=== PATIENT | male | born 1975 | race Caucasian/White ===

== ENCOUNTER → 2016-08-12 | Day surgery (SDC) | payer BC ==
[2016-07-22 10:04] VITALS: Ht 175.3 cm; Wt 84.1 kg
[~2016-08-12] VITALS: Ht 175.3 cm; Wt 84.1 kg
[~2016-08-12] MED LIST: ALBU18002 INH; ATROPINE SULFATE 0.1 MG/ML 5ML SYR IV PRN; BUPIVACAINE/EPINEPHRINE 0.5% MPF 1:200,000 30 ML VIAL ONE; CETI10TA84 PO; CLINDAMYCIN PHOS 150 MG/ML 2 ML VIAL IV SCH; DEXAMETHASONE SOD INJ 4 MG/ML VIAL ONE; EpHEDrine SULFATE INJ 50 MG/ML AMP IV PRN; EpINEphrine INJ 1MG/ML AMP 1 MG/ML AMP ONE; FENTANYL CITRATE INJ 50 MCG/1 ML 2 ML VIAL IV PRN; FENTANYL CITRATE INJ 50 MCG/1 ML 2 ML VIAL ONE; FLUT0.15 NAE; LACTATED RINGER'S 1000ML 1,000 ML IV SCH; LIDOCAINE HCL 1% 20 ML VIAL ONE; LIDOCAINE HCL 2% 2 ML VIAL (20MG/ML) ONE; MIDAZOLAM HCL 1 MG/ML 2ML VIAL ONE; MoRPHine SULFATE 2 MG/ML CARP IV PRN; MoRPHine SULFATE 4 MG/ML 1 ML CARP\\VIAL IV PRN; ONDANSETRON INJ 2 MG/ML 2 ML VIAL IV PRN; ONDANSETRON INJ 2 MG/ML 2 ML VIAL ONE; OXYCODONE/ACETAMINOPHEN 5-325 TAB PO PRN; PROPOFOL IV EMULSION 10 MG/ML 20 ML VIAL IV ONE; SCOPOLAMINE 1.5 MG TDSY TD ONE
--- NOTE | 2016-08-12 06:55 | History & Physical Bridge - [place] ---
H&P Re-Evaluation Bridge Note: I have examined the patient, reviewed the History & Physical and in the interval since the performance of the History & Physical I have noted the following changes of clinical significance: No changes noted
--- NOTE | 2016-08-12 08:21 | Discharge Instructions-SurgCtr ---
Discharge Instructions Date of Service Aug 12, 2016. Visit Reason for Visit: Left Knee Medial Meniscus Tear Discharge Discharge Diagnosis / Problem: Status post Left knee arthrscopy and debridment Discharge Goals Goal(s): Decrease discomfort, Improve function, Increase independence Activity Recommendations Activity Limitations: per Instructions/Follow-up section Exercise/Sports Limitations: gradually increase as tolerated May Resume Sexual Activity: when tolerated Shower/Bathe: may shower/bathe in 3 days Driving or Machine Use: Not while on narcotics Weightbearing Status: Left weightbearing (as tolerated) Anesthesia . Post Anesthesia Instructions: If you have had General Anesthesia or IV Sedation: * Do not drive today. * Resume driving when surgeon permits. * Do not make important decisions or sign legal documents today. * Call surgeon for: 1. Temperature elevations greater than 101 degrees F. 2. Uncontrollable pain. 3. Excessive bleeding. 4. Persistent nausea and vomiting. 5. Medication intolerance (nausea, vomiting or rash). * For nausea and vomiting use only clear liquids such as: tea, soda, bouillon until nausea subsides, then gradually increase diet as tolerated. * If you have any concerns or questions, call your surgeon's office. If physician is unavailable and it is an emergency, call 911 or go to the nearest emergency room. . Instructions / Follow-Up Instructions / Follow-Up Dr. Celaya in 10-15 days. PT in 2-3 days. Diet Recommendations Home Diet: resume previous diet Procedures Procedures Performed: Left Knee Arthroscopy, Partial medial menisectomy, loose body removal, Chondroplasty, Exam Under Andesthesia Pending Studies Studies pending at discharge: no Medical Emergencies . Who to Call and When: Medical Emergencies: If at any time you feel your situation is an emergency, please call 911 immediately. . Non-Emergent Contact Non-Emergency issues call your: Surgeon Call Non-Emergent contact if: temperature is above 101.5, your pain is not controlled, wound has increased drainage, wound has increased redness . . "Provider Documentation" section prepared by Juan Carlos Celaya.
--- NOTE | 2016-08-12 08:24 | [facility] Operative Report ---
Operative Report Operative Date Aug 12, 2016. Pre-Operative Diagnosis Torn medial meniscus left knee Post-Operative Diagnosis same + loose bodies, chondromalacia Procedure(s) Performed 1) Left Knee Arthroscopy Chondroplasty trochlea. 2) Loose body removal. 3) Partial medial menisectomy. 4) Exam Under Andesthesia. Surgeon Dr Celaya Screw Down Surgeon(s) Dr Jimena Moeller Estimated Blood Loss 2 ml Findings The left knee was examined under anesthesia. Range of motion was 0-135. Ligamentous examination exhibited: stable Doug, posterior drawer, varus and valgus stress at 0 & 30 degrees. ARTHROSCOPIC FINDINGS: There was some synovitis and loose bodies in the suprapatellar pouch. 1) PATELLOFEMORAL JOINT: The articular cartilage of the Patella was intact and Trochlea had some Outerbridge type I and 2 changes centrally. 2) GUTTERS: No loose bodies in the medial gutter, small loose bodies in the lateral gutter. There was a non-engaging medial plica. 3) MEDIAL COMPARTMENT: The articular cartilage of the femur and Tibia was intact. The medial meniscus had a degenerative complex tear with flap tears at the apex and posterior horn. 4) ACL/PCL: They were both visualized and probed to be intact. 5) LATERAL COMPARTMENT: The lateral compartment was then entered in a figure-of- four position. The femoral articular cartilage was normal. The tibial articular cartilage had minimal Outerbridge type II changes at the posterior medial aspect. The lateral meniscus was normal. Fluids (cc crystalloids) 800 Specimens 0 Drains n/a Anesthesia LMA Complication(s) None Disposition Recovery Room / PACU (Stable) Implants n/a Indications This is a 41-year-old male who has clinical and MRI findings consistent with meniscus tear and chondromalacia. I recommended that a left knee arthroscopy be performed with meniscus repair vs debridement, possible chondroplasty versus microfracture. The patient understands the risks of surgery, which include but not limited to: bleeding, infection, re-operation, damage to nerves and arteries , continued knee pain, progression of OA, DVT, and a 2-5% risk of becoming worse after surgery. The patient understands all of these instructions and explanations, all of his questions have been satisfactorily addressed and the patient has elected to proceed. Informed consent was signed. Description of Procedure The patient was taken to the Operating Room and placed in the supine position after general anesthetic was administered. My initials and a multidisciplinary time-out were used to identify the left leg as the correct operative limb. Prior to the incision, 600 mg of intravenous clindamycin was given. The left knee was then injected with 20cc of a 50:50 mix of 1% Lidocaine plain and 0.5% Bupivacaine with epinephrine in a sterile fashion using the superolateral portal. The left leg was then prepped and draped in a standard sterile fashion. The anterolateral and anteromedial portals were injected with the 50:50 mixture noted above, for a total of 10cc, in the standard fashion. An anterolateral arthroscopic portal was established with an 11-blade. Next, the arthroscope was introduced into the knee. A diagnostic arthroscopy commenced anteromedial portal was established under direct visualization using a spinal needle followed by an 11 blade in the standard fashion. The above findings were observed during the diagnostic arthroscopy. The anterior fat pad were debrided as they were encounter with mechanical shaver to allow for better visualization. The loose bodies were removed with mechanical shaver or through the trocar for the arthroscope as they were encountered. The articular cartilage damage was debrided back to stable margins as they were encountered with mechanical shaver. The medial meniscus tear was evaluated and found to be irreparable and was debrided back to stable margin with hand punches, and mechanical shaver. The medial plica was non- engaging. The knee was copiously irrigated. The arthroscopic instruments were then removed. The portals were closed with 3-0 Prolene in a standard fashion. The wound was dressed with Xeroform gauze, sterile gauze, ABDs, sterile Webril, and a foot to thigh Danilo bandage. The patient was then transferred to the Recovery Room in stable condition. The sponge and needle counts were correct. Post-op Instructions: The patient will be WBAT. The patient may remove the operative dressing on Post -Op Day #2 and apply Band-Aids to the wounds. The patient may shower in 72 hours and is to wear the HANSEL for 2 weeks on the operative limb. The patient is to use the pain medicine as needed and take the ASA for 2 weeks. The patient was also given a handout for home quad strengthening and seated self-assisted ROM exercises, which they may begin tomorrow. The patient was given a prescription for PT and is scheduled for an appointment later this week. The patient is to follow up with me in 10-15 days. I attest to the content of the Intraoperative Record and any orders documented therein. Any exceptions are noted below.
[2016-08-12 09:21] VITALS: TEMP 36.6
[2016-08-12 09:41] VITALS: BP 112/77; PULSE 68; O2SAT 97
--- NOTE | 2016-08-12 09:45 | Anesthesia Progress Nt - [facility] ---
Anesthesia Post Op Note Date & Time Aug 12, 2016 at 09:46 Vital Signs Pain Intensity: 3 Vital Signs Past 12 Hours Date Time Temp Pulse Resp B/P Pulse Ox O2 Delivery O2 Flow Rate FiO2 08/12/16 09:41 68 18 112/77 97 Room Air 08/12/16 09:21 36.6 70 16 124/82 96 Room Air 08/12/16 09:07 70 7 08/12/16 09:07 71 7 97 08/12/16 09:06 123/73 08/12/16 09:05 36.8 76 16 123/73 96 Room Air 08/12/16 09:03 70 7 08/12/16 09:03 73 7 97 08/12/16 09:01 118/80 08/12/16 08:58 71 12 100 08/12/16 08:58 71 12 08/12/16 08:56 107/64 08/12/16 08:53 78 22 99 08/12/16 08:53 77 22 08/12/16 08:51 116/77 08/12/16 08:48 69 12 08/12/16 08:48 69 12 99 08/12/16 08:47 79 23 99 08/12/16 08:47 78 23 08/12/16 08:46 127/81 08/12/16 08:42 86 17 08/12/16 08:42 86 17 99 08/12/16 08:41 117/88 08/12/16 08:37 87 131/79 96 08/12/16 08:37 87 08/12/16 08:37 36.8 79 22 131/79 99 Mask 8 08/12/16 06:27 36.7 78 16 127/87 97 Room Air Notes Mental Status: alert / awake / arousable, participated in evaluation Pt Amnestic to Procedure: Yes Nausea / Vomiting: adequately controlled Pain: adequately controlled Airway Patency, RR, SpO2: stable & adequate BP & HR: stable & adequate Hydration State: stable & adequate Anesthetic Complications: no major complications apparent
== END | disposition home or self-care (01) ==
LOC: X.SURG 06:17
PROVIDERS: ATTEND Orthopaedic Surgery Sports Medicine
DX: M23.222 Derangement of posterior horn of medial meniscus due to old tear or injury, left knee (principal); M94.262 Chondromalacia, left knee; J45.909 Unspecified asthma, uncomplicated